=== PATIENT | female | born 1970 | race Caucasian/White ===

== ENCOUNTER → 2016-05-11 | Outpatient (CLI) | payer BC ==
--- NOTE | 2016-05-11 11:32 | MM ---
Reason for exam: additional evaluation requested from prior study. Last mammogram was performed 1 year and 7 months ago. History: Family history of breast cancer in maternal grandmother at age 50. Physical Findings: Nurse did not find any significant physical abnormalities on exam. MG 3D Diag Mammo W/Cad TESS Bilateral CC and MLO view(s) were taken. Prior study comparison: October 09, 2014, bilateral MG screening mammo w CAD. May 03, 2013, mammogram, performed at [facility]. Finding: There is a high density, indistinct irregular mass in the upper outer quadrant, anterior position of the right breast, 2 cm from the nipple. New finding since October 09, 2014 and May 03, 2013. These results were verbally communicated with the patient and result sheet given to the patient on 05/11/16. ASSESSMENT: Incomplete: need additional imaging evaluation, BI-RAD 0 RECOMMENDATION: Ultrasound of the right breast.
--- NOTE | 2016-05-11 11:34 | USB ---
Reason for exam: additional evaluation requested from abnormal screening. History: Family history of breast cancer in maternal grandmother at age 50. US Breast Limited RT Right breast ultrasound is negative. These results were verbally communicated with the patient and result sheet given to the patient on 05/11/16. ASSESSMENT: Negative, BI-RAD 1 RECOMMENDATION: Follow-up diagnostic mammogram of the right breast in 3 months. (3D)
== END | disposition home or self-care (01) ==
LOC: RADMAMWWP 09:41
PROVIDERS: ATTEND Family Medicine
DX: N64.4 Mastodynia (principal)
CPT/HCPCS: 76642; G0204; G0279

== ENCOUNTER → 2016-08-12 | Outpatient (CLI) | payer BC ==
--- NOTE | 2016-08-12 08:33 | MM ---
Reason for exam: follow-up at short interval from prior study. Last mammogram was performed 3 months ago. History: Family history of breast cancer in maternal grandmother at age 50. Physical Findings: Nurse did not find any significant physical abnormalities on exam. MG 3D Diag Mammo W/Cad RT CC and MLO view(s) were taken of the right breast. Prior study comparison: May 11, 2016, bilateral MG 3d diag mammo w/cad TESS. October 09, 2014, bilateral MG screening mammo w CAD. There are scattered fibroglandular densities. There is no discrete abnormality. No significant new findings when compared with previous films. These results were verbally communicated with the patient and result sheet given to the patient on 08/12/16. ASSESSMENT: Negative, BI-RAD 1 RECOMMENDATION: Routine screening mammogram of both breasts in 9 months. Back on schedule May 2017.
== END | disposition home or self-care (01) ==
LOC: RADMAMWWP 07:02
PROVIDERS: ATTEND Family Medicine
DX: N64.4 Mastodynia (principal)
CPT/HCPCS: G0206; G0279

== ENCOUNTER → 2017-03-28 | Outpatient (CLI) | payer BC ==
--- NOTE | 2017-03-28 14:13 | NM ---
EXAMINATION TYPE: NM bone scan whole body DATE OF EXAM: 03/28/2017 COMPARISON: NONE HISTORY: Pain Delayed whole-body scanning was performed following the injection of 27.4 mCi Tc 99m MDP. Images acq uired 5 hours post injection. Additionally, anterior posterior views of the pelvis, medial and latera l views of the knee, and medial and lateral views of the feet are obtained. FINDINGS: Abnormal uptake involving the knees and feet is typical of arthritic change. Abnormal uptake involvin g the shoulders suggestive of arthritic change. Faint abnormal uptake throughout the mid and lower thoracic spine and near the lumbosacral junction l ikely degenerative. IMPRESSION: 1. Abnormal uptake involving the knees, feet and shoulders likely post arthritic. 2. Correlate for mild degenerative disc disease in the thoracic spine.
[2017-03-28 17:29] LABS: Anti-DNA, DS unit <1.0 IU/mL; DNA Double-Stranded NEGATIVE (NEGATIVE)
[2017-03-31 09:35] LABS: Lyme IgG/IgM 0.1 Index
== END | disposition home or self-care (01) ==
LOC: RADNMMAIN 07:20
PROVIDERS: ATTEND Internal Medicine Rheumatology
DX: R93.7 Abnormal findings on diagnostic imaging of other parts of musculoskeletal system (principal); M19.90 Unspecified osteoarthritis, unspecified site; A69.20 Lyme disease, unspecified
CPT/HCPCS: 83516; 86618; 86225; 78306; 36415; A9503

== ENCOUNTER 2017-04-22 13:52 | Emergency (ER) | payer BC ==
[2017-04-22] MEDS ORDERED: KETOROLAC 60 MG/2 ML VIAL IM STA (14:57)
--- NOTE | 2017-04-22 15:00 | ED ---
Extremity Problem HPI - General Chief complaint: Extremity Problem,Nontraumatic Stated complaint: Leg pain Time Seen by Provider: 04/22/17 14:44 Source: patient Mode of arrival: ambulatory Limitations: no limitations - History of Present Illness Initial comments: This is a 47 year old female who presents with a chief complaint of left calf and popliteal pain which began 1 day ago. The patient states she noticed an increase in left lower extremity swelling today. She states she has been favoring the left leg due to her arthritis has been flaring in her right knee for the last 3 weeks. She denies shortness of breath and she is able to ambulate. She has a significant history of hemochromatosis which has been adequately controlled. - Related Data Home Medications Medication Instructions Recorded Confirmed Cholecalciferol [Vitamin D3] 5,000 unit PO DAILY 06/04/15 02/06/17 Omeprazole [PriLOSEC] 20 mg PO BID 06/04/15 02/06/17 Sertraline [Zoloft] 100 mg PO DAILY 06/04/15 02/06/17 Topiramate [Topiramate ER] 100 mg PO DAILY 06/04/15 02/06/17 Cyanocobalamin (Vitamin B-12) 1,000 mcg PO DAILY 02/06/17 02/06/17 [Vitamin B-12] Dextroamphetamine/Amphetamine 20 mg PO DAILY 02/06/17 02/06/17 [Adderall Xr] Doxycycline Hyclate [Vibramycin] 100 mg PO BID 02/06/17 02/06/17 [place]-3 Fatty Acids/Fish Oil [Fish 1 cap PO DAILY 02/06/17 02/06/17 Oil 1,000 mg Softgel] Thyroid,Pork [Nature-Throid] 65 mg PO DAILY 02/06/17 02/06/17 traMADol HCL [Ultram] 50 mg PO Q6HR PRN 02/06/17 02/06/17 Previous Rx's Medication Instructions Recorded Aspirin EC [Ecotrin Low Dose] 81 mg PO DAILY #30 tablet. 02/07/17 Nitroglycerin Sl Tabs [Nitrostat] 0.4 mg SUBLINGUAL Q5M PRN #20 tab 02/07/17 Allergies Allergy/AdvReac Type Severity Reaction Status Date / Time codeine Allergy Unknown Nausea & Verified 04/22/17 14:42 Vomiting Penicillins Allergy Unknown Rash/Hives Verified 04/22/17 14:42 metal Allergy Unknown Unknown Uncoded 04/22/17 14:42 Review of Systems ROS Statement: Those systems with pertinent positive or pertinent negative responses have been documented in the HPI. ROS Other: All systems not noted in ROS Statement are negative. Past Medical History Past Medical History: Blood Disorder, GERD/Reflux, Skin Disorder, Sleep Apnea/ CPAP/BIPAP Additional Past Medical History / Comment(s): USES C-PAP MACHINE, HEMOCHROMATOSIS, PSORIASIS, BLOOD IN STOOL . TAKES TOPAMAX TO HELP PREVENT HEADACHES. History of Any Multi-Drug Resistant Organisms: None Reported Past Surgical History: Adenoidectomy, Bariatric Surgery, Cholecystectomy, Tonsillectomy, Tubal Ligation Additional Past Surgical History / Comment(s): LAP BAND INSERTED AND REMOVED, GASTRIC SLEEVE (2012), BRAIN SURGERY (MAY 2014) WITH PLATE INSERTED TO SUPPORT BRAIN AND REPAIR OF SPINAL FLUID LEAK. Past Anesthesia/Blood Transfusion Reactions: Family History of Problems w/ Anesthesia, Motion Sickness, Postoperative Nausea & Vomiting (PONV) Additional Past Anesthesia/Blood Transfusion Reaction / Comment(s): FATHER HAS DIFFICULTY WAKING UP. PT STATES SHE IS SENSITIVE TO NARCOTICS AND GETS HEADACHE AND NAUSEA. Past Psychological History: ADD/ADHD, Anxiety, Depression Smoking Status: Former smoker Past Alcohol Use History: Rare Past Drug Use History: None Reported - Past Family History Mother Family Medical History: Diabetes Mellitus Father Family Medical History: Dementia Additional Family Medical History / Comment(s): Glucoma, Brain tumor - benin General Exam Limitations: no limitations General appearance: alert, in no apparent distress Head exam: Present: atraumatic, normocephalic, normal inspection Extremities exam: Present: normal inspection, full ROM, tenderness (positive Torey sign in left calf. Neurovascular grossly intact bilaterally. ), normal capillary refill, calf tenderness (left calf tender), other (pitting edema noted bilaterally with the left lower extremity more extensive.). Absent: joint swelling Neurological exam: Present: alert, oriented X3, CN II-XII intact Psychiatric exam: Present: normal affect, normal mood Skin exam: Present: warm, dry, intact, normal color. Absent: rash Course Vital Signs 04/22/17 14:39 Temperature 98.2 F Pulse Rate 89 Respiratory 18 Rate Blood Pressure 127/74 O2 Sat by Pulse 99 Oximetry Medical Decision Making - Medical Decision Making 47-year-old female presented emergency from for left leg pain. Patient also which is negative for DVT. Patient has equal pulses in all lower extremities no arterial disease noted. Patient most likely is muscular skeletal pain secondary to recent change in gait because her right knee pain. She has appointment with her special technical operations officer and will return if symptoms worsen. Disposition Clinical Impression: Musculoskeletal pain of left lower extremity Disposition: HOME SELF-CARE Condition: Stable Instructions: Leg Pain (ED) Additional Instructions: Please return to the Emergency Department if symptoms worsen or any other concerns. Referrals: Jin Murillo MD [Primary Care Provider] - 1-2 days Time of Disposition: 16:39
--- NOTE | 2017-04-22 16:29 | US ---
EXAMINATION TYPE: US venous doppler duplex LE LT DATE OF EXAM: 04/22/2017 2:53 PM COMPARISON: NONE CLINICAL HISTORY: 47-year-old female Pain. Left calf pain SIDE PERFORMED: Left TECHNIQUE: The lower extremity deep venous system is examined utilizing real time linear array sonog ely with graded compression, doppler sonography and color-flow sonography. FINDINGS: VESSELS IMAGED: External Iliac Vein (EIV) Common Femoral Vein Deep Femoral Vein Greater Saphenous Vein * Femoral Vein Popliteal Vein Small Saphenous Vein * Proximal Calf Veins (* superficial vessels) Left Leg: Negative for DVT Additional targeted scanning in the calf area of patient's pain. No specific sonographic abnormality is seen. IMPRESSION: 1. No evidence for DVT within the left lower extremity imaged from the groin to the upper calf. 2. Targeted scanning at the site of patient's pain along the calf region shows no discrete sonographi c abnormality at this time.
[2017-04-22 16:49] VITALS: BP 125/75; PULSE 76; RESP 16; TEMP 97.6
== END 2017-04-22 16:51 | disposition home or self-care (01) ==
LOC: EC 13:52
DX: M79.662 Pain in left lower leg (principal); R60.0 Localized edema; M25.561 Pain in right knee; M79.89 Other specified soft tissue disorders; K21.9 Gastro-esophageal reflux disease without esophagitis; G47.30 Sleep apnea, unspecified; F32.9 Major depressive disorder, single episode, unspecified; F41.9 Anxiety disorder, unspecified; F90.9 Attention-deficit hyperactivity disorder, unspecified type; Z87.891 Personal history of nicotine dependence; Z79.899 Other long term (current) drug therapy; Z88.0 Allergy status to penicillin; Z88.5 Allergy status to narcotic agent; Z91.09 Other allergy status, other than to drugs and biological substances; Z86.69 Personal history of other diseases of the nervous system and sense organs; Z99.89 Dependence on other enabling machines and devices
CPT/HCPCS: 93971; 99283; 96372; J1885

== ENCOUNTER → 2017-05-09 | Outpatient (CLI) | payer BC ==
[~2017-05-09] MED LIST: DOBUTamine 250 MG in DEXTROSE 5% IN WATER 250 ML IV ONE
--- NOTE | 2017-05-10 10:07 | ECHOS ---
- Stress Test Note Stress Test Results/Findings: Exam Performed: dobutamine stress echo Exam Date: 05/09/17 Reason for Exam: ABNORMAL EKG Height: 5 ft 2 in Weight: 90.718 kg Protocol: DSE Stage: 3 Duration of Exercise: 8:45 Resting Heart Rate: 66 Resting Blood Pressure: 114/71 Maximum Achieved Heart Rate: 150 Maximum Achieved Blood Pressure: 148/48 85% PMHR: 149 100% PMHR: 175 METS: NA Technologist Comment: Stress Test Results/Findings: This is a 47-year-old female being evaluated for symptoms of exertional shortness of breath and also findings of abnormal EKG. Patient has history of smoking. Baseline EKG showed sinus rhythm with normal ND interval and QRS duration with poor R-wave progression in the anterior leads. Blood pressure at rest is 114/71 with a pulse rate of 66. Patient walked on the Joaquim protocol for 8 minutes and 45 seconds achieving a maximal heart rate of 150 with a blood pressure 148/48. A standard dose of dobutamine was were initiated at 10 mics and was titrated to maximum 30 mics. A peak heart rate of 150 with blood pressure 148/48 was achieved. EKGs taken during and after the infusion did not reveal any changes to suggest ischemia. Occasional PVCs were noted. ECHO DATA: Echo images showed normal wall motion and thickening at rest. There is progressive augmentation of wall motion and thickening with low dose and high dose dobutamine. Patient did not express any chest pain. Occasional PVCs were noted. FINAL IMPRESSION: #1. Negative dobutamine stress test #2. Negative dobutamine stress echo. #3. Patient did not experience any chest pain. #4. Occasional PVCs were noted during exercise. MTDD
== END | disposition home or self-care (01) ==
LOC: RADNMMAIN 10:17
PROVIDERS: ATTEND Family Medicine
DX: I49.3 Ventricular premature depolarization (principal)
CPT/HCPCS: 93017; 93350; J1250

== ENCOUNTER → 2017-05-12 | Outpatient (CLI) | payer BC ==
--- NOTE | 2017-05-12 08:35 | MR ---
EXAMINATION TYPE: MR lumbar spine wo con DATE OF EXAM: 05/12/2017 COMPARISON: Nuclear medicine whole body bone scan March 28, 2017. HISTORY: Spinal stenosis / Herniated disc per order. Back pain for 6 months going into bilateral legs left worse than right. Abnormal bone scan. TECHNIQUE: Multiplanar, multisequence imaging of the lumbar spine is performed without IV contrast. FINDINGS: Survey images show slight levoconvex scoliotic curvature in the mid lumbar spine. Spine is noted fairly straightened on the bone scan. Sagittal images of the lumbar spine show vertebral body h eights to appear satisfactory. There is disc desiccation L4-L5 and L5-S1 levels. There is mild disc s pace narrowing at these levels. Posterior disc herniation is present at L5-S1 level on sagittal image s. Increased signal posteriorly consistent with annular tear is present. The conus medullaris is norm al in position and signal ending mid L1 level. The bone marrow signal intensity is within normal rocha its. No significant spurring is seen. Axial images are suboptimal as there is motion artifact degradation present. Axial images show the T1 2-L1, L1-L2, and L2-L3 levels to appear within normal limits. Axial images at the L3-L4 level show artifact from motion degradation. There is left foraminal disc p rotrusion causing mild left-sided neural foraminal narrowing. Right-sided neural foramen is patent. S tomi canal is preserved. Axial images at the L4-L5 level show mild facet degenerative changes and ligamentum flavum hypertroph y and mild broad based posterior disc protrusion. There is mild effacement the anterior and posterior lateral thecal sac. There is mild bilateral anterior inferior neural foraminal narrowing seen. Axial images at the L5-S1 level shows central disc protrusion and mild facet arthropathy bilaterally. There is mild effacement of the anterior thecal sac. There is mild left greater than right bilateral neural foraminal narrowing seen. No suspicious retroperitoneal findings are identified. IMPRESSION: Some multilevel degenerative changes in the mid to lower lumbar spine as detailed above. Mild spinal canal effacement lower lumbar levels. No significant spinal canal stenosis seen. No suspi cious findings lower thoracic spine and thoracolumbar junction. Bone scan to me is fairly unimpressiv e at this level.
== END | disposition home or self-care (01) ==
LOC: RADMRIMAIN 07:35
PROVIDERS: ATTEND Internal Medicine Rheumatology
DX: M47.816 Spondylosis without myelopathy or radiculopathy, lumbar region (principal)
CPT/HCPCS: 72148

== ENCOUNTER → 2017-05-18 | Outpatient (CLI) | payer BC ==
--- NOTE | 2017-05-18 13:05 | US ---
EXAMINATION TYPE: US venous doppler duplex LE LT DATE OF EXAM: 05/18/2017 12:27 PM COMPARISON: NONE CLINICAL HISTORY: R79.1 Abnormal Coagulation Profile. Pain and edema left leg SIDE PERFORMED: left TECHNIQUE: The lower extremity deep venous system is examined utilizing real time linear array sonog ely with graded compression, doppler sonography and color-flow sonography. VESSELS IMAGED: External Iliac Vein (EIV) Common Femoral Vein Deep Femoral Vein Greater Saphenous Vein * Femoral Vein Popliteal Vein Small Saphenous Vein * Proximal Calf Veins (* superficial vessels) Left Leg: No evidence of DVT IMPRESSION: 1. No deep venous thrombosis left lower extremity.
== END | disposition home or self-care (01) ==
LOC: RADUSWWP 11:57
PROVIDERS: ATTEND Family Medicine
DX: R79.1 Abnormal coagulation profile (principal)

== ENCOUNTER → 2017-09-04 | Outpatient (CLI) | payer BC ==
--- NOTE | 2017-09-04 11:45 | MM ---
Reason for exam: screening (asymptomatic). Last mammogram was performed 1 year and 1 month ago. History: Family history of breast cancer in maternal grandmother at age 50 and breast cancer in sister at age 61. Physical Findings: A clinical breast exam by your physician is recommended on an annual basis and results should be correlated with mammographic findings. MG 3D Screening Mammo W/Cad Bilateral CC and MLO view(s) were taken. Prior study comparison: August 12, 2016, right breast MG 3d diag mammo w/cad RT. May 11, 2016, bilateral MG 3d diag mammo w/cad TESS. There are scattered fibroglandular densities. No significant changes when compared with prior studies. ASSESSMENT: Negative, BI-RAD 1 RECOMMENDATION: Routine screening mammogram of both breasts in 1 year.
== END | disposition home or self-care (01) ==
LOC: RADMAMWWP 07:07
PROVIDERS: ATTEND Obstetrics & Gynecology
DX: Z12.31 Encounter for screening mammogram for malignant neoplasm of breast (principal)
CPT/HCPCS: 77063; 77067

== ENCOUNTER → 2018-04-30 | Outpatient (CLI) | payer BC ==
--- NOTE | 2018-04-30 16:38 | US ---
EXAMINATION TYPE: US extremity nonvasc mass LT DATE OF EXAM: 04/30/2018 COMPARISON: US venous 05/18/17 CLINICAL HISTORY: Bakers Cyst M71.22. No masses or cysts seen in left popliteal space. Images of right side for comparison. IMPRESSION: 1. Negative popliteal fossa ultrasound. No cysts or masses are evident. 2. Consider MRI if additional evaluation would be of benefit.
== END ==
LOC: RADUSWWP 07:06
PROVIDERS: ATTEND Internal Medicine Rheumatology
DX: M71.22 Synovial cyst of popliteal space [Baker], left knee (principal)

== ENCOUNTER → 2018-06-06 | Outpatient (CLI) | payer BC ==
--- NOTE | 2018-06-06 22:47 | MR ---
EXAMINATION TYPE: MR brain and iac wo/w con DATE OF EXAM: 06/06/2018 COMPARISON: Prior MRI brain and IAC May 19, 2014. HISTORY: Left Encephalocele, headache, ear ache TECHNIQUE: Multiplanar, multisequence images of the brain and brainstem including internal auditory canals are a ll performed performed without and with IV contrast, utilizing 9 mL intravenous Gadavist . FINDINGS: Diffusion weighted images demonstrate no evidence of a recent infarct or other diffusion ab normality. There is no extra-axial fluid collection or significant white matter signal abnormality. The ventricular system and cisternal spaces are normal in size and appearance. The brain volume is age appropriate. Midline structures demonstrate normal morphology. The craniocervical junction appears within normal limits. Post contrast images demonstrate no abnormal enhancement. The dural venous sinuses appear pa tent. The visualized sinuses are clear and the globes are intact. Nasal septum remains slightly devia jeffry to left of midline. Some patchy increased fluid signal is redemonstrated in the deep left mastoid air cells. Vestibular c ochlear complexes are symmetric and felt within normal limits. There is no suspicious enhancing cereb ellopontine angle mass identified bilaterally. IMPRESSION: System persistent mild increased fluid signal left petrous apex could reflect new infecti on or inflammation. No new suspicious enhancing masses are present.
== END | disposition home or self-care (01) ==
LOC: RADMRIMAIN 15:31
PROVIDERS: ATTEND Otolaryngology Otology & Neurotology
DX: Z09 Encounter for follow-up examination after completed treatment for conditions other than malignant neoplasm (principal); Z87.798 Personal history of other (corrected) congenital malformations
CPT/HCPCS: 70553; A9585

== ENCOUNTER → 2019-01-04 | Outpatient (CLI) | payer BC ==
--- NOTE | 2019-01-07 08:55 | MM ---
Reason for exam: screening (asymptomatic). Last mammogram was performed 1 year and 4 months ago. History: Family history of breast cancer in maternal grandmother at age 50 and breast cancer in sister at age 61. Physical Findings: A clinical breast exam by your physician is recommended on an annual basis and results should be correlated with mammographic findings. MG Screening Mammo w CAD Bilateral CC and MLO view(s) were taken. Prior study comparison: September 04, 2017, bilateral MG 3d screening mammo w/cad. August 12, 2016, right breast MG 3d diag mammo w/cad RT. There are scattered fibroglandular densities. No suspicious abnormality. No significant changes when compared with prior studies. ASSESSMENT: Negative, BI-RAD 1 RECOMMENDATION: Routine screening mammogram of both breasts in 1 year.
== END | disposition home or self-care (01) ==
LOC: RADMAMWWP 07:39
PROVIDERS: ATTEND Family Medicine
DX: Z12.31 Encounter for screening mammogram for malignant neoplasm of breast (principal)
CPT/HCPCS: 77067

== ENCOUNTER → 2019-08-23 | Outpatient (CLI) | payer MEDICARE ==
--- NOTE | 2019-08-23 14:30 | US ---
EXAMINATION TYPE: US kidneys/renal and bladder DATE OF EXAM: 08/23/2019 COMPARISON: NONE CLINICAL HISTORY: R31.9 Hematuria. Hematuria EXAM MEASUREMENTS: Right Kidney: 10.0 x 5.3 x 4.5 cm Left Kidney: 11.0 x 4.6 x 4.6 cm Right Kidney: No hydronephrosis or masses seen Left Kidney: No hydronephrosis or masses seen Bladder: distended, anechoic Bilateral Jets not seen IMPRESSION: 1. Normal renal ultrasound
== END | disposition home or self-care (01) ==
LOC: RADUSWWP 13:37
PROVIDERS: ATTEND Family Medicine
DX: R31.9 Hematuria, unspecified (principal)
CPT/HCPCS: 76770

== ENCOUNTER → 2019-09-26 | Outpatient (CLI) | payer MEDICARE ==
--- NOTE | 2019-09-27 15:15 | US ---
EXAMINATION TYPE: US pelvis complete transvaginal DATE OF EXAM: 09/26/2019 COMPARISON: US 04/20/2015 CLINICAL HISTORY: R10.2 Pelvic and perineal pain. Patient had an ablation 1-2 years ago TECHNIQUE: . Transabdominal sonographic images of the pelvis were acquired. Transvaginal sonographi c images were medically necessary to better assess the following anatomy: Ovaries Date of LMP: 1-2 years ago EXAM MEASUREMENTS: Uterus: 6.8 x 3.6 x 3.5 cm Endometrial Stripe: 0.2 cm Right Ovary: 2.4 x 1.3 x 1.2 cm Left Ovary: 3.8 x 3.1 x 2.3 cm 1. Uterus: Anteverted Heterogenous myometrium. Discrete hypoechoic heterogenous area of the logistics solution manager ior uterine body, visualized measuring 1.6 x 1.3 x 1.5 cm. Nabothian cysts of the cervix visualized. 2. Endometrium: Normal. 3. Right Ovary: Normal. 4. Left Ovary: Cyst visualized measuring 2.6 x 2.1 x 2.8 cm 5. Bilateral Adnexa: Normal. 6. Posterior cul-de-sac: Normal. IMPRESSION: 1. 1.5 cm hypoechoic area of the posterior uterine body likely uterine fibroid. 2. 2.8 cm simple benign cyst of the left ovary. No follow-up for this cyst is recommended.
== END | disposition home or self-care (01) ==
LOC: RADUSWWP 15:32
PROVIDERS: ATTEND Family Medicine
DX: N83.202 Unspecified ovarian cyst, left side (principal); N85.8 Other specified noninflammatory disorders of uterus
CPT/HCPCS: 76830; 76856

== ENCOUNTER → 2019-10-10 | Day surgery (SDC) | payer MEDICARE ==
[~2019-10-10] MED LIST changes: -DOBUTamine 250 MG in DEXTROSE 5% IN WATER 250 ML IV ONE; +IV FLUID CONTINUATION 1,000 ML IV ONE; +LACTATED RINGERS 1,000 ML IV ONE; +LIDOCAINE 1% (10MG/ML) FOR IV START INTRADERMA ONE; +LIDOCAINE 1% INJ 10MG/ML (20 ML MDV) ONE; +PROPOFOL 10 MG/ML 20 ML VIAL IV ONE
[2019-10-10 11:14] VITALS: RESP 20; TEMP 97.6
--- NOTE | 2019-10-10 12:12 | P.PCN ---
Date of Procedure: 10/10/19 Procedure(s) Performed: BRIEF HISTORY: Patient is a body 49-year-old pleasant white female scheduled for an elective colonoscopy as a part of evaluation of Iron deficiency anemia. PROCEDURE PERFORMED: Colonoscopy. PREOPERATIVE DIAGNOSIS: Iron deficiency anemia. IV sedation per Anesthesia. PROCEDURE: After informed consent was obtained, the patient, was brought into the endoscopy unit. IV sedation was administered by Anesthesia under continuous monitoring. Digital rectal examination was normal. Initially the Olympus CF-160 flexible video colonoscope was then inserted in the rectum, gradually advanced into the cecum without any difficulty. Careful examination was performed as the scope was gradually being withdrawn. Ileocecal valve and the appendiceal orifice were visualized and appeared normal. Prep was excellent. Mucosa of the cecum, ascending colon, transverse colon, descending colon, sigmoid colon, and rectum appeared normal. Retroflexion was performed in the rectum and no lesions were seen. The patient tolerated the procedure well. IMPRESSION: Normal-appearing colon from rectum to cecum with no evidence of colorectal neoplasia. RECOMMENDATIONS: Findings of this examination were discussed with the patient as well as a family. She was advised to have a repeat screening colonoscopy in 10 years..
[2019-10-10 12:33] VITALS: BP 139/84; PULSE 82
== END ==
LOC: ORWHC2ENDO 10:41
PROVIDERS: ATTEND Internal Medicine Gastroenterology
DX: D50.9 Iron deficiency anemia, unspecified (principal); G47.33 Obstructive sleep apnea (adult) (pediatric); Z99.89 Dependence on other enabling machines and devices; E66.9 Obesity, unspecified; Z68.41 Body mass index [BMI] 40.0-44.9, adult; G43.909 Migraine, unspecified, not intractable, without status migrainosus; K21.9 Gastro-esophageal reflux disease without esophagitis; Z98.84 Bariatric surgery status; E83.119 Hemochromatosis, unspecified; Z79.891 Long term (current) use of opiate analgesic; Z79.899 Other long term (current) drug therapy; Z88.0 Allergy status to penicillin; Z88.2 Allergy status to sulfonamides; Z88.5 Allergy status to narcotic agent
CPT/HCPCS: 81025; 45378; J2001; J2704

== ENCOUNTER → 2020-03-10 | Outpatient (CLI) | payer MEDICARE ==
--- NOTE | 2020-03-10 09:00 | MR ---
EXAMINATION TYPE: MR knee RT wo con DATE OF EXAM: 03/10/2020 COMPARISON: Outside right knee x-ray January 28, 2020 HISTORY: R knee pain TECHNIQUE: Multiplanar, multisequence imaging of the right knee is performed without IV contrast. FINDINGS: MEDIAL MENISCUS: Anterior and posterior horns are intact without tear. LATERAL MENISCUS: Anterior and posterior horns are intact without tear. CRUCIATE LIGAMENTS: The anterior and posterior cruciate ligaments are intact and unremarkable. COLLATERAL LIGAMENTS: The medial collateral ligament and lateral collateral ligament complex are inta ct and unremarkable. EXTENSOR MECHANISM: Visualized quadriceps and patellar tendons are intact. EFFUSION: Small to moderate size suprapatellar joint effusion. POPLITEAL CYST: No popliteal/sanchez cyst. TRICOMPARTMENT SPACES: [id number] tricompartment joint space loss with mild/moderate tricompart ment joint space spurring. CARTILAGE: Chondromalacia patella with thinning of articular cartilage along the posterior patellar p ole, findings greatest inferiorly where there are full thickness sites of cartilaginous loss identifi ed. BONE MARROW SIGNAL: There is a heterogeneous diminished T1 and increased T2 signal along the posterio r patellar pole are present. There is additional similar area involving the anterior lateral aspect o f the distal medial femoral condyle articular surface. Overall heterogeneity consistent with red kristin ow reconversion. OTHER: No additional significant abnormality is appreciated. IMPRESSION: 1. Fairly moderate tricompartment degenerative changes greatest patellofemoral compartment as detaile d above somewhat pronounced for patient's age. 2. No meniscal or ligamentous tear is seen. 3. Small to moderate-sized suprapatellar joint effusion.
== END | disposition home or self-care (01) ==
LOC: RADMRIMAIN 07:54
PROVIDERS: ATTEND Orthopaedic Surgery
DX: M17.11 Unilateral primary osteoarthritis, right knee (principal)

== ENCOUNTER → 2020-04-03 | Outpatient (CLI) | payer MEDICARE ==
[2020-04-03 13:23] LABS: Basophils % (A) 1 %; Eosinophils # (A) 0.2 k/uL (0-0.7); Eosinophils % (A) 2 %; HCT 44.2 % (34.0-46.0); HGB 14.9 gm/dL (11.4-16.0); Lymphocytes # (A) 2.5 k/uL (1.0-4.8); Lymphocytes % (A) 30 %; MCH 30.5 pg (25.0-35.0); MCHC 33.7 g/dL (31.0-37.0); MCV 90.3 fL (80.0-100.0); Mean Platelet Volume 6.7; Monocytes # (A) 0.5 k/uL (0-1.0); Monocytes % (A) 6 %; Neutrophils # (A) 4.8 k/uL (1.3-7.7); Neutrophils % (A) 60 %; Platelet Count 283 k/uL (150-450); RBC 4.89 m/uL (3.80-5.40); RDW 13.1 % (11.5-15.5); WBC 8.1 k/uL (3.8-10.6)
[2020-04-03 13:49] LABS: Potassium 4.3 mmol/L (3.5-5.1)
== END | disposition home or self-care (01) ==
LOC: LABPAT 10:54
PROVIDERS: ATTEND Orthopaedic Surgery
DX: M23.91 Unspecified internal derangement of right knee (principal)
CPT/HCPCS: 80051; 85025

== ENCOUNTER 2020-04-09 10:44 | Day surgery (SDC) | payer MEDICARE ==
[2020-04-07 10:19] VITALS: BMI 41.5
--- NOTE | 2020-04-08 20:32 | HP ---
HISTORY AND PHYSICAL DATE OF SURGERY: 04/09/2020 Antonio Lester is a 50-year-old patient seen with progressive right knee pain. We discussed options for treatment. She elected to proceed with arthroscopy. Consent was obtained. PAST MEDICAL HISTORY: Gastroesophageal reflux disease. PAST SURGICAL HISTORY: Tubal ligation, carpal tunnel release. DAILY MEDICATIONS: Omeprazole, Flexeril. ALLERGIES: BACTRIM, CODEINE, PENICILLIN. SOCIAL HISTORY: She denies tobacco use. PHYSICAL EVALUATION OF THE RIGHT KNEE: Range of motion zero to 130. Tenderness along the medial joint line. Tenderness along the lateral joint line. Positive medial Erin's. Positive lateral Erin's. Ligaments stable. Hip rotation without pain. Distal neurovascular exam is intact. RADIOGRAPHS: Right knee radiographs revealed mild osteoarthritic changes. MRI right knee revealed chondromalacia and intra-articular effusion. IMPRESSION: 1. Internal derangement of the right knee with osteochondral tear. 2. Gastroesophageal reflux disease. PLAN: Right knee arthroscopy with partial meniscectomy, partial synovectomy and debridement. MMODL / IJN: [id number] /
[~2020-04-09 10:44] MED LIST changes: +DEXAMETHASONE SOD PHOSPHATE 4 MG/ML 1 ML VIAL IV ONE; -IV FLUID CONTINUATION 1,000 ML IV ONE; -LACTATED RINGERS 1,000 ML IV ONE; +LACTATED RINGERS 1,000 ML IV SCH; -LIDOCAINE 1% (10MG/ML) FOR IV START INTRADERMA ONE; +LIDOCAINE 1% (10MG/ML) FOR IV START INTRADERMA PRN; -LIDOCAINE 1% INJ 10MG/ML (20 ML MDV) ONE; +MIDAZOLAM 2 MG/2 ML VIAL IV PRN; +ONDANSETRON 4 MG/2 ML VIAL IVP ONE; -PROPOFOL 10 MG/ML 20 ML VIAL IV ONE
[2020-04-09 11:20] VITALS: RESP 16
[2020-04-09] MEDS ORDERED: LACTATED RINGERS 1,000 ML IV ONE (11:26)
[2020-04-09] MEDS ORDERED: SCOPOLAMINE 1.5MG/72HR PATCH TRANSDERM ONE (11:27)
[2020-04-09] MEDS ORDERED: fentaNYL (PF) 50 MCG/ML 2 ML AMP IV ONE (12:05)
[2020-04-09] MEDS ORDERED: PROPOFOL 10 MG/ML 20 ML VIAL IV ONE (12:15)
[2020-04-09] MEDS ORDERED: KETOROLAC 15 MG/ML 1 ML VIAL ONE (12:15)
[2020-04-09] MEDS ORDERED: LIDOCAINE 1% INJ 10MG/ML (20 ML MDV) ONE (12:15)
[2020-04-09] MEDS ORDERED: MIDAZOLAM 2 MG/2 ML VIAL ONE (12:15)
[2020-04-09] MEDS ORDERED: fentaNYL (PF) 50 MCG/ML 2 ML AMP ONE (12:15)
[2020-04-09] MEDS ORDERED: SUCCINYLCHOLINE CHLORIDE 100 MG/5 ML SYR IV ONE (12:15)
[2020-04-09] MEDS ORDERED: BUPIVACAINE (PF) 0.25% 30 ML VIAL INTRAARTIC ONE (12:26)
--- NOTE | 2020-04-09 13:19 | P.OP ---
Date of Procedure: 04/09/20 Preoperative Diagnosis: Internal derangement right knee Postoperative Diagnosis: 1. Tear medial meniscus right knee 2. Grade 2 chondromalacia patella right knee 3. Loose body right knee 4. Reactive synovitis medial, lateral and suprapatellar compartments right knee Procedure(s) Performed: 1. Arthroscopic partial medial meniscectomy right knee 2. Arthroscopic chondroplasty patella right 3. Arthroscopic removal loose body right knee 4. Arthroscopic partial synovectomy medial, lateral and suprapatellar compartments right knee Anesthesia: DAXA, local Surgeon: Mustapha Villa Estimated Blood Loss (ml): 7 Pathology: none sent Condition: stable Disposition: PACU Indications for Procedure: 50-year-old patient seen with progressive right knee pain. After treatment options were discussed with her, she elected to proceed with arthroscopy. Operative Findings: See description of procedure Description of Procedure: Patient was taken to the operative suite. Patient underwent a general anesthetic by the department of anesthesia. Patient was given preoperative antibiotics. The right lower extremity was placed in a well-padded arthroscopic leg umaña. The right leg was prepped and draped in the normal sterile o rthopedic fashion. A lateral parapatellar and suprapatellar incision was made. Trochars were inserted. Arthroscopy was initiated. Suprapatellar pouch revealed diffuse thick reactive synovitis. The patellofemoral joint appeared to articulate congruently. There as grade 2 chondromalacia of the patella with some osteochondral flap tears present. The scope was guided into the medial gutter. No loose bodies or plica were identified. The scope was then guided into the medial compartment. A medial parapatellar incision was made. Trocar inserted followed by probe. There was a loose body on the medial side of the medial compartment. I now introduced a loose body forceps and retrieved that without difficulty. There was a tear involving the posterior horn medial meniscus. There were some early grade 1 chondromalacia changes of the medial compartment. There was thick reactive synovitis anteriorly. I performed a partial medial meniscectomy getting down to stable meniscal tissue. I performed a partial synovectomy decompressing the thick reactive synovitis. The shaver was removed. The residual meniscus was stable. There was good decompression of the synovitis. Scope and probe were then guided into the intercondylar notch. Cruciates were identified, probed and found to be stable. The scope and probe were then guided into lateral compartment. Lateral meniscus was probed and found to be stable. There was no specific chondromalacia present. There was some reactive synovitis anteriorly. I introduced a motorized shaver and performed a partial synovectomy decompressing the thick reactive synovitis. The shaver was removed. There was good decompression of the synovitis. The scope was in guided back into the suprapatellar compartment. I introduced a motorized shaver into the suprapatellar compartment. I debrided some piecemeal fragments of meniscus I encountered. I performed a chondroplasty of the patella getting down to stable osteochondral tissue. I performed a partial synovectomy decompressing the thick reactive synovitis. The shaver was removed. I now took one more look on the entire knee, no residual debris. Instruments were now removed from the joint. The joint was infiltrated with .25% Marcaine. Steri- Strips were applied to the portal sites. Sterile dressings were applied. The patient was placed into a PERFECTO hose. No tourniquet was utilized. The patient was awakened, transferred to a bed and taken to recovery stable satisfactory condition.
[2020-04-09] MEDS: HYDROmorphone 0.5 MG/0.5 ML SYRINGE IVP PRN ×2 (13:20→13:35)
[2020-04-09 13:51] VITALS: TEMP 96.8
[2020-04-09] MEDS ORDERED: HYDROcodone/APAP 5-325MG 1 EACH TAB ONE (14:26)
[2020-04-09] MEDS ORDERED: HYDROcodone/APAP 5-325MG 1 EACH TAB PO ONE (14:31)
[2020-04-09 14:37] VITALS: BP 137/84; PULSE 69
== END 2020-04-09 15:15 | disposition home or self-care (01) ==
LOC: OR 10:44
PROVIDERS: ATTEND Orthopaedic Surgery
DX: M23.221 Derangement of posterior horn of medial meniscus due to old tear or injury, right knee (principal); M22.41 Chondromalacia patellae, right knee; M23.41 Loose body in knee, right knee; M65.861 Other synovitis and tenosynovitis, right lower leg; S83.8X1A Sprain of other specified parts of right knee, initial encounter; M94.261 Chondromalacia, right knee; M17.11 Unilateral primary osteoarthritis, right knee; K21.9 Gastro-esophageal reflux disease without esophagitis; Z88.2 Allergy status to sulfonamides; Z88.5 Allergy status to narcotic agent; Z88.0 Allergy status to penicillin; Z98.51 Tubal ligation status; Z98.890 Other specified postprocedural states; Z79.899 Other long term (current) drug therapy; X58.XXXA Exposure to other specified factors, initial encounter
CPT/HCPCS: 81025; 29881; J2250; J1100; J0690; J2405; J2001; J3010; J1885; J0330; J2704; J1170

== ENCOUNTER 2020-05-06 11:58 | Emergency (ER) | payer MEDICARE ==
[2020-05-06 12:14] VITALS: PULSE 69; TEMP 98.3
[2020-05-06] MEDS ORDERED: SODIUM CHLORIDE 0.9% 1,000 ML IV ONE (12:35)
[2020-05-06] MEDS ORDERED: diphenhydrAMINE 50 MG/ML 1 ML VIAL IVP STA (12:36)
--- NOTE | 2020-05-06 12:41 | ED ---
General Adult HPI - General Chief complaint: Headache Stated complaint: Headache Time Seen by Provider: 05/06/20 12:10 Source: patient, family, RN notes reviewed, old records reviewed Mode of arrival: ambulatory Limitations: no limitations - History of Present Illness Initial comments: This a 50-year-old female presents emergency Department with a ten-day history of headache. Patient states she has a history of migraines and this is similar except that it's a little worse and is lasting longer. Patient states she's had brain surgery in the past for some sort of spinal leak. Patient comes in today stating that he started 10 days ago about 2 weeks after her Cymbalta was increased from 20 mg to 40 mg a day. Patient states she decreased that began after a week to 20 and then it stopped altogether on Monday because the headache was not going away. Patient denies any blurred vision. Patient states she does feel lightheaded. Patient denies any difficulty breathing shortness of breath chest pain. Patient denies any numbness or weakness. Patient states she's nauseated but hasn't vomited.. Patient states she's been able to eat normally. Patient denies any abdominal pain. - Related Data Home Medications Medication Instructions Recorded Confirmed Cholecalciferol [Vitamin D3 (25 5,000 unit PO DAILY 06/04/15 04/09/20 Mcg = 1000 Iu)] Omeprazole [PriLOSEC] 20 mg PO BID 06/04/15 04/09/20 Cyanocobalamin (Vitamin B-12) 1,000 mcg PO DAILY 02/06/17 04/09/20 [Vitamin B-12] Dextroamphetamine/Amphetamine 20 mg PO DAILY 02/06/17 04/09/20 [Adderall Xr] Amitriptyline HCl [Elavil] 10 mg PO HS 04/07/20 04/09/20 DULoxetine HCL [Cymbalta] 20 mg PO DAILY 04/07/20 04/09/20 Galcanezumab-Gnlm [Emgality] 120 mg SQ Q30D 04/07/20 04/09/20 Previous Rx's Medication Instructions Recorded HYDROcodone/APAP 5-325MG [Sandy 1 tab PO Q6HR PRN 7 Days #28 tab 04/09/20 5-325] Allergies Allergy/AdvReac Type Severity Reaction Status Date / Time codeine Allergy Unknown Nausea & Verified 04/09/20 11:16 Vomiting Penicillins Allergy Unknown Rash/Hives Verified 04/09/20 11:16 sulfamethoxazole Allergy Unknown Unknown Verified 04/09/20 11:16 [From Bactrim] trimethoprim [From Bactrim] Allergy Unknown Unknown Verified 04/09/20 11:16 adhesive tape AdvReac Rash/Hives Verified 05/06/20 12:14 metal Allergy Unknown Unknown Uncoded 04/09/20 11:16 Review of Systems ROS Statement: Those systems with pertinent positive or pertinent negative responses have been documented in the HPI. ROS Other: All systems not noted in ROS Statement are negative. Past Medical History Past Medical History: Blood Disorder, GERD/Reflux, Skin Disorder, Sleep Apnea/CPAP/BIPAP Additional Past Medical History / Comment(s): USES C-PAP MACHINE, HEMOCHROMATOSIS, PSORIASIS, BLOOD IN STOOL . TAKES TOPAMAX TO HELP PREVENT HEADACHES. History of Any Multi-Drug Resistant Organisms: None Reported Past Surgical History: Adenoidectomy, Bariatric Surgery, Cholecystectomy, Orthopedic Surgery, Tonsillectomy, Tubal Ligation Additional Past Surgical History / Comment(s): LAP BAND INSERTED AND REMOVED, GASTRIC SLEEVE (2012), BRAIN SURGERY (MAY 2014) WITH PLATE INSERTED TO SUPPORT BRAIN AND REPAIR OF SPINAL FLUID LEAK. Right knee miniscus repair Apr 2020 Past Anesthesia/Blood Transfusion Reactions: Family History of Problems w/ Anesthesia, Motion Sickness, Postoperative Nausea & Vomiting (PONV) Additional Past Anesthesia/Blood Transfusion Reaction / Comment(s): FATHER HAS DIFFICULTY WAKING UP. PT STATES SHE IS SENSITIVE TO NARCOTICS AND GETS HEADACHE AND NAUSEA. Past Psychological History: ADD/ADHD, Anxiety, Depression Smoking Status: Former smoker, Vaper Past Alcohol Use History: Rare Past Drug Use History: Marijuana - Past Family History Mother Family Medical History: Diabetes Mellitus Father Family Medical History: Dementia Additional Family Medical History / Comment(s): Glucoma, Brain tumor - benin General Exam - General Exam Comments Initial Comments: GENERAL: Patient is well-developed and well-nourished. Patient is nontoxic and well- hydrated and is in mild distress. ENT: Neck is soft and supple. No significant lymphadenopathy is noted. Oropharynx is clear. Moist mucous membranes. Neck has full range of motion without eliciting any pain. EYES: The sclera were anicteric and conjunctiva were pink and moist. Extraocular movements were intact and pupils were equal round and reactive to light. Eyelids were unremarkable. PULMONARY: Unlabored respirations. Good breath sounds bilaterally. No audible rales rhonchi or wheezing was noted. CARDIOVASCULAR: There is a regular rate and rhythm without any murmurs gallops or rubs. ABDOMEN: Soft and nontender with normal bowel sounds. SKIN: Skin is clear with no lesions or rashes and otherwise unremarkable. NEUROLOGIC: Patient is alert and oriented x3. Cranial nerves II through XII are grossly intact. Motor and sensory are also intact. Normal speech, volume and content. Symmetrical smile. MUSCULOSKELETAL: Normal extremities with adequate strength and full range of motion. LYMPHATICS: No significant lymphadenopathy is noted PSYCHIATRIC: Normal psychiatric evaluation. Limitations: no limitations Course Vital Signs 05/06/20 12:10 Temperature 98.3 F Pulse Rate 69 Respiratory 18 Rate Blood Pressure 142/82 O2 Sat by Pulse 98 Oximetry Medical Decision Making - Medical Decision Making EKG shows normal sinus rhythm at 66 bpm NJ interval 138 QRS is 88 QT interval is 432 QTC is 452. Patient's EKG shows no ST segment elevation or depression CT of the brain shows no acute abnormality. I went back into the room after the patient received Benadryl and droperidol and the patient stated her headache was much improved and she wanted to go home. P atient also received a liter of normal saline. Disposition Clinical Impression: Acute headache Disposition: HOME SELF-CARE Condition: Good Instructions (If sedation given, give patient instructions): Acute Headache (ED) Is patient prescribed a controlled substance at d/c from ED?: No Referrals: Jin Murillo MD [Primary Care Provider] - 1-2 days Time of Disposition: 13:52
--- NOTE | 2020-05-06 13:20 | CT ---
EXAMINATION TYPE: CT brain wo con DATE OF EXAM: 05/06/2020 COMPARISON: 02/06/2017 INDICATION: Headache DLP: 1107.4 mGycm, Automated exposure control for dose reduction was used. CONTRAST: None CT of the brain is performed utilizing 3 mm thick sections through the posterior fossa and 3 mm thick sections through the remaining calvarium. Study is performed within 24 hours of arrival to the hosp ital. Exam is limited with the right portion of the calvarium and internal contents partially exclude d from the [id number]. No abnormal hyperdensity is present to suggest an acute intracranial hemorrhage. No mass lesion is evident. No acute infarcts are evident. Ventricles and sulci are appropriate for the patient age. Paranasal sinuses and mastoid air cells within the [id number] are clear. Prior left craniotomy changes are evident. IMPRESSIONS: 1. Normal limited CT Brain. 2. No suspicious abnormality within the [id number] to account for patient's headache symptoms.
[2020-05-06 13:59] VITALS: BP 150/89; RESP 16
== END 2020-05-06 13:59 | disposition home or self-care (01) ==
LOC: EC 11:58
DX: G43.909 Migraine, unspecified, not intractable, without status migrainosus (principal); K21.9 Gastro-esophageal reflux disease without esophagitis; F32.9 Major depressive disorder, single episode, unspecified; F41.9 Anxiety disorder, unspecified; F12.90 Cannabis use, unspecified, uncomplicated; Z87.891 Personal history of nicotine dependence; Z90.49 Acquired absence of other specified parts of digestive tract
CPT/HCPCS: 93005; 70450; 99283; 96374; 96375; 96361; J1200; J1790

== ENCOUNTER → 2020-09-09 | Outpatient (CLI) | payer MEDICARE ==
--- NOTE | 2020-09-11 12:00 | MM ---
Reason for exam: screening (asymptomatic). Last mammogram was performed 1 year and 8 months ago. History: Family history of breast cancer in maternal grandmother at age 50 and breast cancer in sister at age 61. Took hormonal contraceptives for 10 years. Physical Findings: A clinical breast exam by your physician is recommended on an annual basis and results should be correlated with mammographic findings. MG 3D Screening Mammo W/Cad Bilateral CC and MLO view(s) were taken. Prior study comparison: January 04, 2019, bilateral MG screening mammo w CAD. September 04, 2017, bilateral MG 3d screening mammo w/cad. May 11, 2016, bilateral MG 3d diag mammo w/cad TESS. There are scattered fibroglandular densities. No significant changes when compared with prior studies. ASSESSMENT: Negative, BI-RAD 1 RECOMMENDATION: Routine screening mammogram of both breasts in 1 year.
== END | disposition home or self-care (01) ==
LOC: RADMAMWWP 08:18
PROVIDERS: ATTEND Family Medicine
DX: Z12.31 Encounter for screening mammogram for malignant neoplasm of breast (principal); Z80.3 Family history of malignant neoplasm of breast
CPT/HCPCS: 77063; 77067

== ENCOUNTER → 2020-12-18 | Outpatient (CLI) | payer MEDICARE ==
--- NOTE | 2020-12-18 14:16 | MR ---
EXAMINATION TYPE: MR shoulder RT wo con DATE OF EXAM: 12/18/2020 COMPARISON: None. HISTORY: R shoulder pain TECHNIQUE: Multiplanar, multisequence imaging of the right shoulder is performed without contrast. FINDINGS: Rotator Cuff: Small focal articular surface tear measuring 8 to 9 mm AP diameter sagittal image 6 inv olving the anterior 1/3-1/2 of the supraspinatus tendon fibers. Infraspinatus tendon intact. Rotator cuff muscle bulk preserved. Subscapularis tendon intact. Acromioclavicular Joint: Mild to moderate narrowing and mild spurring. Mild/moderate capsular hypertr ophy. Underlying fat plane maintained. Distal acromion morphology unremarkable. Glenohumeral Joint: Mild to moderate narrowing without significant effusion or spurring. Labrum: The labrum appears grossly intact given limitation of non-arthrogram study. Biceps Tendon: The long head of biceps is in normal location within bicipital groove. Bone marrow signal: Overall heterogeneity suggesting red marrow reconversion. No suspicious edema. Other: No additional significant abnormality is appreciated. IMPRESSION: Partial articular surface tear anterior fibers of the supraspinatus tendon.
== END | disposition home or self-care (01) ==
LOC: RADMRIMAIN 12:41
PROVIDERS: ATTEND Orthopaedic Surgery
DX: M75.111 Incomplete rotator cuff tear or rupture of right shoulder, not specified as traumatic (principal)

== ENCOUNTER 2021-04-29 06:01 | Day surgery (SDC) | payer MEDICARE ==
[2021-04-27 16:01] VITALS: BMI 38.7
--- NOTE | 2021-04-28 17:05 | HP ---
HISTORY AND PHYSICAL DATE OF SURGERY: 04/29/2021 Antonio Lester is a 51-year-old patient seen with progressive right shoulder pain. We discussed options for treatment. Patient elected to proceed with right shoulder arthroscopy. Consent was obtained. PAST MEDICAL HISTORY: Gastroesophageal reflux disease. PAST SURGICAL HISTORY: Tubal ligation, carpal tunnel release. DAILY MEDICATIONS: Adderall, Flexeril, omeprazole. ALLERGIES: BACTRIM, CODEINE. SOCIAL HISTORY: She denies tobacco use. PHYSICAL EVALUATION OF THE RIGHT SHOULDER: Flexion is 140 degrees. Abduction is 110 degrees. External rotation is 40 degrees with some pain and weakness. Tenderness along the anterolateral acromion and rotator cuff insertion site. Impingement is positive at 80 degrees. Drop-arm sign is positive. Distal neurovascular exam is intact. Radiographs of the right shoulder revealed a type 2 acromion and evidence for acromioclavicular joint osteoarthritis. MRI of right shoulder revealed rotator cuff tendon tear. IMPRESSION: 1. Right shoulder impingement with rotator cuff tear. 2. Right shoulder acromioclavicular joint osteoarthritis. PLAN: Right shoulder arthroscopy with subacromial decompression, arthroscopic rotator cuff repair, Dheeraj procedure and debridement. MMODL / IJN: [id number] /
[2021-04-29] MEDS ORDERED: HYDROmorphone 0.5 MG/0.5 ML SYRINGE IVP PRN (06:13)
[2021-04-29] MEDS ORDERED: MIDAZOLAM 2 MG/2 ML VIAL IV PRN (06:13)
[2021-04-29] MEDS ORDERED: LACTATED RINGERS 1,000 ML IV SCH (06:13)
[2021-04-29] MEDS ORDERED: DEXAMETHASONE SOD PHOSPHATE 4 MG/ML 1 ML VIAL IV ONE (06:13)
[2021-04-29 06:36] VITALS: TEMP 97.8
[2021-04-29] MEDS ORDERED: MIDAZOLAM 2 MG/2 ML VIAL IVP ONE (06:54)
[2021-04-29] MEDS: ONDANSETRON 4 MG/2 ML VIAL IVP ONE ×2 (07:11→10:16)
[2021-04-29] MEDS ORDERED: SCOPOLAMINE 1.5MG/72HR PATCH TRANSDERM ONE (07:15)
[2021-04-29] MEDS ORDERED: LIDOCAINE 1% INJ 10MG/ML (20 ML MDV) ONE (07:22)
[2021-04-29] MEDS ORDERED: SUCCINYLCHOLINE CHLORIDE 100 MG/5 ML SYR IV ONE (07:22)
[2021-04-29] MEDS ORDERED: GLYCOPYRROLATE 0.2 MG/ML 2 ML VIAL ONE (07:22)
[2021-04-29] MEDS ORDERED: KETOROLAC 15 MG/ML 1 ML VIAL ONE (07:22)
[2021-04-29] MEDS ORDERED: NEOSTIGMINE 1 MG/ML 10 ML VIAL ONE (07:22)
[2021-04-29] MEDS ORDERED: fentaNYL (PF) 50 MCG/ML 2 ML AMP ONE (07:22)
[2021-04-29] MEDS ORDERED: ROCURONIUM 10 MG/ML (5 ML VIAL) IV ONE (07:22)
[2021-04-29] MEDS ORDERED: ROPIVACAINE 5 MG/ML 30 ML VIAL ONE (07:22)
[2021-04-29] MEDS ORDERED: PROPOFOL 10 MG/ML 20 ML VIAL IV ONE (07:22)
[2021-04-29] MEDS ORDERED: LABETALOL 5 MG/ML VIAL MDV ONE (07:22)
--- NOTE | 2021-04-29 08:56 | P.OP ---
Date of Procedure: 04/29/21 Preoperative Diagnosis: Right shoulder impingement Postoperative Diagnosis: 1. Right shoulder rotator cuff tear 2. Right shoulder acromioclavicular joint osteoarthritis 3. Right shoulder impingement Procedure(s) Performed: 1. Right shoulder arthroscopic rotator cuff repair 2. Right shoulder acromioclavicular joint osteoarthritis 3. Right shoulder impingement Implants: 14.75 Arthrex swivel lock anchor Anesthesia: GETA, regional (Interscalene block) Surgeon: Mustapha Villa Senior Administrative Services Officer #1: Milton Gunn Estimated Blood Loss (ml): 10 Pathology: none sent Condition: stable Disposition: PACU Indications for Procedure: 51-year-old patient seen with progressive right shoulder pain. After treatment options were discussed, she elected to proceed with arthroscopy. Operative Findings: See description of procedure Description of Procedure: Patient underwent an interscalene block by department of anesthesia. The patient was then taken to the operative suite. The patient underwent a general anesthetic by the department of anesthesia. The patient was placed into a lateral position and secured. There was appropriate padding of the bony prominence. Right shoulder was then prepped and draped in normal sterile orthopedic fashion. We placed the extremity in 10 pounds of longitudinal traction. A posterior incision was now made for a posterior working portal site. The trocar and cannula were inserted into the glenohumeral joint. Arthroscopy was initiated. Spinal needle was now inserted anteriorly, to ascertain the anterior working portal site. An incision was now made in that area, a trocar was inserted followed by a probe. Was some superficial fraying of the superior labrum. There was no significant chondromalacia present. The remaining labrum was probed and it was found be stable. The biceps was intact and stable. I debrided out some superficial fraying with a motorized shaver. I again probed the labrum and anchor there were both stable. Instruments were now removed from glenohumeral joint. Utilizing the posterior working portal site, the trocar and cannula were inserted into the subacromial space. Arthroscopy initiated. I made an incision 2 fingerbreadths lateral to the acromion. I introduced my trocar followed by my ArthroCare ablator. I now began ablating thick subacromial bursal tissue, which exposed the undersurface of the anterior acromion. There was diminished subacromial space. There was a very prominent anterior acromion. A motorized bur was introduced and a subacromial decompression was performed. I also excised some osteophytes off the inferior aspect of the distal clavicle. The AC joint was visualized and noted to be fairly arthritic. The motorized bur was introduced in the anterior portal site and a Dheeraj procedure was performed without difficulty, decompressing the AC joint nicely. I turned my attention to the rotator cuff. There was significant partial tearing along the distal supraspinatus area. Upon probing the area noted a full-thickness perforation. I now introduced a motorized shaver and debrided the margins getting down to stable tendon tissue. The defect/tear measuring approximately 11.5 cm and was freely mobile over the footprint. I abraded the footprint with a motorized bur. With the assistance of Kenny LOPES I pasted 3 everted mattress sutures through good bites of rotator cuff tendon. I punched a hole in the footprint area for insertion of an anchor. All 6 limbs of suture were passed through the eyelet of a 4.75 Arthrex swivel lock anchor. I placed the eyelet into our pre- punched hole and held in position while Kenny LOPES tension all the sutures and deployed the anchor with good fixation noted. All residual suture limbs were now clipped. We had good compression of the tendon along the entire footprint. Instruments now removed from the portal sites. All portal sites were approximated with nylon suture. Sterile dressings were applied followed by a shoulder sling. Milton LOPES assisted in this complex case. The patient was awakened, transferred to a bed, and taken to recovery in stable condition.
[2021-04-29 11:05] VITALS: BP 121/84; RESP 18
[2021-04-29 11:24] VITALS: PULSE 83
--- NOTE | 2021-04-29 19:49 | P.ANPRN ---
Procedure Note - Anesthesia - Nerve Block Performed Right Interscalene Single Time Out Performed: Yes Date of Procedure: 04/29/21 Procedure Start Time: 06:54 Procedure Stop Time: 07:02 Location of Patient: PreOp Indication: Acute Post-Operative Pain, Requested by Surgeon Sedation Type: Sedate with meaningful contact maintained Preparation: Sterile Prep Position: Supine Needle Types: Pajunk Needle Gauge: 21 Ultrasound used to visualize needle placement: Yes Ultrasound used to observe medication spread: Yes Blood Aspirated: No Pain Paresthesia on Injection Noted: No Resistance on Injection: Normal Image Stored and Saved: Yes Events: Uneventful and Well Tolerated (ropi .5% 20cc plus dexamethasone 4mg)
== END 2021-04-29 12:03 | disposition home or self-care (01) ==
LOC: OR 06:01
PROVIDERS: ATTEND Orthopaedic Surgery
DX: M75.41 Impingement syndrome of right shoulder (principal); K21.9 Gastro-esophageal reflux disease without esophagitis
CPT/HCPCS: 29827; 64415; 76942; C1713; J2250; J1100; J2710; J0690; J2405; J2001; J3010; J2795; J1885; J0330; J2704; J1170

== ENCOUNTER 2021-09-13 12:55 | Emergency (ER) | payer MEDICARE ==
[2021-09-13 13:19] VITALS: TEMP 97.9
--- NOTE | 2021-09-13 14:00 | ED ---
General Adult HPI - General Chief complaint: Upper Respiratory Infection Stated complaint: Covid+,wants antibodies Time Seen by Provider: 09/13/21 13:30 Source: patient, RN notes reviewed, old records reviewed Mode of arrival: ambulatory Limitations: no limitations - History of Present Illness Initial comments: 51-year-old female with myalgia, nausea, tested positive for coronavirus at home. No dyspnea. No vomiting. No measured fever. Patient is vaccinated against coronavirus. Presenting to the emergency department for monoclonal antibody therapy. - Related Data Home Medications Medication Instructions Recorded Confirmed Cholecalciferol [Vitamin D3 (25 5,000 unit PO DAILY 06/04/15 04/29/21 Mcg = 1000 Iu)] Omeprazole [PriLOSEC] 20 mg PO BID 06/04/15 04/29/21 Acetaminophen/Diphenhydramine 2 tab PO HS 04/27/21 04/29/21 [Tylenol PM 500-25mg] Dextroamphetamine/Amphetamine 30 mg PO QAM 04/27/21 04/29/21 [Adderall Xr] Fremanezumab-Vfrm [Ajovy 225 mg SQ Q30D 04/27/21 04/29/21 Autoinjector] Multivitamins, Thera [Multivitamin 1 tab PO DAILY 04/27/21 04/29/21 (formulary)] Rizatriptan Benzoate [Rizatriptan] 10 mg PO DAILY PRN 04/27/21 04/29/21 Sertraline HCl [Zoloft] 100 mg PO DAILY 04/27/21 04/29/21 Previous Rx's Medication Instructions Recorded HYDROcodone/APAP 7.5-325MG [[place] 1 each PO Q6HR PRN #28 tab 04/29/21 7.5] Allergies Allergy/AdvReac Type Severity Reaction Status Date / Time codeine Allergy Unknown Nausea & Verified 09/13/21 13:19 Vomiting Penicillins Allergy Unknown Rash/Hives Verified 09/13/21 13:19 sulfamethoxazole Allergy Unknown Unknown Verified 09/13/21 13:19 [From Bactrim] trimethoprim [From Bactrim] Allergy Unknown Unknown Verified 09/13/21 13:19 adhesive tape AdvReac Rash/Hives Verified 09/13/21 13:19 metal Allergy Unknown Unknown Uncoded 09/13/21 13:19 Review of Systems ROS Statement: Those systems with pertinent positive or pertinent negative responses have been documented in the HPI. ROS Other: All systems not noted in ROS Statement are negative. Past Medical History Past Medical History: Blood Disorder, GERD/Reflux, Skin Disorder, Sleep Apnea/CPAP/BIPAP Additional Past Medical History / Comment(s): USES C-PAP MACHINE, HEMOCHROMATOSIS, PSORIASIS, BLOOD IN STOOL . TAKES TOPAMAX TO HELP PREVENT HEAD ACHES. History of Any Multi-Drug Resistant Organisms: None Reported Past Surgical History: Adenoidectomy, Bariatric Surgery, Cholecystectomy, Orthopedic Surgery, Tonsillectomy, Tubal Ligation Additional Past Surgical History / Comment(s): LAP BAND INSERTED AND REMOVED, GASTRIC SLEEVE (2012), BRAIN SURGERY (MAY 2014) WITH PLATE INSERTED TO SUPPORT BRAIN AND REPAIR OF SPINAL FLUID LEAK. Right knee miniscus repair Apr 2020 Past Anesthesia/Blood Transfusion Reactions: Family History of Problems w/ Anesthesia, Motion Sickness, Postoperative Nausea & Vomiting (PONV) Additional Past Anesthesia/Blood Transfusion Reaction / Comment(s): FATHER HAS DIFFICULTY WAKING UP. PT STATES SHE IS SENSITIVE TO NARCOTICS AND GETS HEADACHE AND NAUSEA. Past Psychological History: ADD/ADHD, Anxiety, Depression Smoking Status: Former smoker, Vaper - Past Family History Mother Family Medical History: Diabetes Mellitus Father Family Medical History: Dementia Additional Family Medical History / Comment(s): Glucoma, Brain tumor - benin General Exam Limitations: no limitations General appearance: alert, in no apparent distress Head exam: Present: atraumatic, normocephalic Eye exam: Present: normal appearance, PERRL ENT exam: Present: normal exam, mucous membranes moist Respiratory exam: Present: normal lung sounds bilaterally. Absent: respiratory distress, wheezes Cardiovascular Exam: Present: regular rate, normal rhythm GI/Abdominal exam: Present: soft. Absent: distended, tenderness, guarding Extremities exam: Present: normal inspection, normal capillary refill. Absent: pedal edema Neurological exam: Present: alert, oriented X3, CN II-XII intact. Absent: motor sensory deficit Psychiatric exam: Present: normal affect, normal mood Skin exam: Present: warm, dry, intact Course Vital Signs 09/13/21 13:15 Temperature 97.9 F Pulse Rate 90 Respiratory 20 Rate Blood Pressure 146/90 O2 Sat by Pulse 97 Oximetry Medical Decision Making - Medical Decision Making Patient with coronavirus, 24 hours of symptoms, she needs monoclonal antibodies. She is otherwise well-appearing without history distress or hypoxia. She is instructed to continue vitamins at home follow-up with her primary care physician. Disposition Clinical Impression: COVID-19 Disposition: HOME SELF-CARE Condition: Fair Instructions (If sedation given, give patient instructions): COVID-19 (Coronavirus Disease 2019) (ED) Is patient prescribed a controlled substance at d/c from ED?: No Referrals: Jin Murillo MD [Primary Care Provider] - 1-2 days Time of Disposition: 15:00
[2021-09-13] MEDS ORDERED: BEBTELOVIMAB (EUA) 175 MG/2 ML VIAL IV ONE (14:30)
[2021-09-13 15:22] VITALS: BP 138/92; PULSE 88; RESP 18
== END 2021-09-13 15:21 | disposition home or self-care (01) ==
LOC: EC 12:55
DX: U07.1 COVID-19 (principal); K21.9 Gastro-esophageal reflux disease without esophagitis; F32.A Depression, unspecified; F41.9 Anxiety disorder, unspecified; F90.9 Attention-deficit hyperactivity disorder, unspecified type; Z87.891 Personal history of nicotine dependence; Z79.899 Other long term (current) drug therapy
CPT/HCPCS: 99283; Q0222

== ENCOUNTER → 2021-11-26 | Outpatient (CLI) | payer MEDICARE ==
--- NOTE | 2021-11-26 09:24 | MR ---
EXAMINATION TYPE: MR shoulder LT wo con DATE OF EXAM: 11/26/2021 COMPARISON: None. HISTORY: L shoulder pain with difficulty raising overhead for 6+ months. TECHNIQUE: Multiplanar, multisequence imaging of the left shoulder is performed without contrast. FINDINGS: Rotator Cuff: Increased signal involving the anterior superior portion of the distal supraspinatus mu scle bulk and tendon with focal tear near the articular surface measuring 5 mm AP diameter sagittal i mage 9 x 7 mm transversely coronal image 13. Infraspinatus tendon intact. Subscapularis tendon intact . Rotator cuff muscle bulk preserved. Acromioclavicular Joint: Moderate narrowing and spurring. Moderate capsular hypertrophy. Loss of unde rlying fat plane noted sagittal image 9. Glenohumeral Joint: Small joint effusion. Mild narrowing. Labrum: Increased signal superior labrum consistent with degenerative tearing. Biceps Tendon: The long head of biceps is in normal location within bicipital groove. Some increased signal and thickening of the intra-articular portion noted. Bone marrow signal: Subchondral cystic change posterolateral aspect of the humeral head. Other: No additional significant abnormality is appreciated. IMPRESSION: 1. Tendinosis and partial tearing of the distal supraspinatus tendon. 2. Tendinosis intra-articular portion long head of biceps tendon. 3. Fairly moderate degenerative changes in the left shoulder as detailed above.
== END | disposition home or self-care (01) ==
LOC: RADMRIMAIN 07:22
PROVIDERS: ATTEND Orthopaedic Surgery
DX: M19.012 Primary osteoarthritis, left shoulder (principal); M75.112 Incomplete rotator cuff tear or rupture of left shoulder, not specified as traumatic; M67.814 Other specified disorders of tendon, left shoulder

== ENCOUNTER → 2022-02-17 | Outpatient (CLI) | payer MEDICARE ==
--- NOTE | 2022-02-17 08:43 | US ---
EXAMINATION TYPE: US kidneys/renal and bladder DATE OF EXAM: 02/17/2022 COMPARISON: NONE CLINICAL HISTORY: N20.0 kidney stone. right renal stone recently removed, no symptoms today EXAM MEASUREMENTS: Right Kidney: 12.3 x 4.8 x 4.9 cm Left Kidney: 10.9 x 4.2 x 4.8 cm Right Kidney: prominent renal pelvis may be mild hydro versus extrarenal pelvis. Left Kidney: No hydronephrosis or masses seen Bladder: wnl Bilateral Jets seen: Yes IMPRESSION: 1. Mild right hydronephrosis.
[2022-02-17 17:22] LABS: Phosphorus 3.7 mg/dL (2.4-5.1)
[2022-02-17 17:30] LABS: African American GFR (CKD) 86.3 (60.0-200.0); Calcium 9.3 mg/dL (8.7-10.3); Carbon Dioxide 30.1 mmol/L (20.0-27.5); Non-African American GFR(CKD) 74.5 (60.0-200.0); Uric Acid 4.2 mg/dL (2.9-7.7)
== END | disposition home or self-care (01) ==
LOC: RADUSWWP 07:04
PROVIDERS: ATTEND Urology
DX: N13.30 Unspecified hydronephrosis (principal); N20.0 Calculus of kidney
CPT/HCPCS: 76770; 82310; 82374; 82435; 82565; 83970; 84100; 84550

== ENCOUNTER → 2022-02-19 | Outpatient (CLI) | payer MEDICARE | END | disposition home or self-care (01) | LOC: LABWHC1 08:46 | PROVIDERS: ATTEND Urology | DX: Z53.9 Procedure and treatment not carried out, unspecified reason (principal) ==

== ENCOUNTER → 2022-02-23 | Outpatient (CLI) | payer MEDICARE ==
[2022-02-19 12:06] LABS: Phosphorus 3.3 mg/dL (2.4-5.1)
[2022-02-19 12:16] LABS: African American GFR (CKD) 95.6 (60.0-200.0); Carbon Dioxide 26.9 mmol/L (20.0-27.5); Non-African American GFR(CKD) 82.4 (60.0-200.0); Uric Acid 4.1 mg/dL (2.9-7.7)
[2022-02-19 13:25] LABS: Creatinine 24 Hour,Urine 1483.8 mg/24hr (800.0-1800.0)
[2022-02-19 23:02] LABS: Uric Acid 24 Hour,Urine 0.6 g/24Hr (0.25-0.75)
[2022-02-19 23:36] LABS: Potassium 24 Hour,Urine 39.8 mmol/24Hr (25.0-120.0)
--- NOTE | 2022-02-23 13:59 | MR ---
EXAMINATION TYPE: MR lumbar spine wo con DATE OF EXAM: 02/23/2022 1:50 PM COMPARISON: 05/12/2017 HISTORY: Lower back pain, BLE radiculopathy. Multiplanar, MultiSpin echo imaging of the lumbar spine was performed. L1-L2: Normal disc appearance without desiccation. No herniation, protrusion or disc bulging. No ca nal stenosis is present. Foramina are patent bilaterally. L2-L3: Normal disc appearance without desiccation. No herniation, protrusion or disc bulging. No ca nal stenosis is present. Foramina are patent bilaterally. L3-L4: There is mild disc desiccation noted. Disc bulge paracentrally to the left at the level of the neural foramen resulting in neural foraminal encroachment. No herniation or central stenosis. Right neural foramen is patent. L4-L5: Mild disc desiccation noted. Posterior disc bulge with mild effacement of the ventral thecal s ac. Mild facet joint arthropathy. Mild bilateral neural foraminal encroachment. L5-S1: Mild disc desiccation noted. Posterocentral disc bulge. No evidence for disc herniation or pro trusion. No central stenosis or foraminal encroachment. Mild facet joint arthropathy. Lumbar segments are intact. No paraspinal masses are identified. Conus medullaris has a normal appe arance. IMPRESSION: 1. Degenerative disc disease as discussed. 2. Left-sided neural foraminal encroachment at L3-4 related to disc bulge. 3. Bilateral neural foraminal encroachment at L4-5
== END | disposition home or self-care (01) ==
LOC: RADMRIMAIN 13:01
PROVIDERS: ATTEND Nurse Practitioner Family
DX: M51.16 Intervertebral disc disorders with radiculopathy, lumbar region (principal); M99.73 Connective tissue and disc stenosis of intervertebral foramina of lumbar region; M48.061 Spinal stenosis, lumbar region without neurogenic claudication
CPT/HCPCS: 72148; 81003; 81050; 82310; 82340; 82374; 82435; 82507; 82565; 82570; 83945; 83970; 84100; 84133; 84300; 84550; 84560

== ENCOUNTER → 2022-04-04 | Outpatient (CLI) | payer MEDICARE ==
--- NOTE | 2022-04-04 12:27 | CT ---
EXAMINATION TYPE: CT urogram wo/w con DATE OF EXAM: 04/04/2022 HISTORY: Hydronephrosis CT DLP: 889 Gycm Automated Exposure Control for Dose Reduction was Utilized. CONTRAST: CT scan of the abdomen and pelvis is performed without oral and without and with IV Contrast, patient injected with 100 mL of Isovue 300. Urogram protocol with 3-D reconstructed images created on an indeni workstation. COMPARISON: Renal ultrasound February 17, 2022 FINDINGS: KUB: Noncontrast images show no renal calculi bilaterally. Postcontrast images show symmetric cortico medullary uptake and excretion without concerning solid or cystic renal mass or hydronephrosis seen b ilaterally. Mild fullness right greater than left pelvis without calyceal dilatation consistent with extrarenal pelvis. Satisfactory enhancement of the bilateral ureters. Urinary bladder shows no worris ome mass or calculus. LUNG BASES: No significant abnormality is appreciated. LIVER/GB: Cholecystectomy clips are seen. PANCREAS: No significant abnormality is seen. SPLEEN: No significant abnormality is seen. ADRENALS: No significant abnormality is seen. BOWEL: Surgical changes from gastric bypass procedure. No suspicious small or large bowel dilatation. UTERUS/ADNEXA: Anteverted uterus. Small amount of free fluid right pelvic cul-de-sac axial image 75-y ear-old is nonspecific. LYMPH NODES: No greater than 1cm abdominal or pelvic lymph nodes are appreciated. OSSEOUS STRUCTURES: No significant abnormality is seen. OTHER: No significant additional abnormality is seen. IMPRESSION: No hydronephrosis seen bilaterally. No delayed excretion bilaterally. Unremarkable study.
== END | disposition home or self-care (01) ==
LOC: RADCTMAIN 09:26
PROVIDERS: ATTEND Urology
DX: N13.39 Other hydronephrosis (principal)
CPT/HCPCS: 74178; 74400; Q9967

== ENCOUNTER 2022-06-07 07:25 | Day surgery (SDC) | payer MEDICARE ==
[~2022-06-07 07:25] MED LIST changes: -DEXAMETHASONE SOD PHOSPHATE 4 MG/ML 1 ML VIAL IV ONE; -MIDAZOLAM 2 MG/2 ML VIAL IV PRN; -ONDANSETRON 4 MG/2 ML VIAL IVP ONE
[2022-06-07 07:49] VITALS: TEMP 97.2
[2022-06-07 07:59] LABS: Glucose,Whole Blood 96 mg/dL (70-110)
[2022-06-07] MEDS ORDERED: IOPAMIDOL M200 10 ML VIAL ONE (08:09)
[2022-06-07] MEDS ORDERED: MIDAZOLAM 2 MG/2 ML VIAL ONE (08:09)
[2022-06-07] MEDS ORDERED: fentaNYL (PF) 50 MCG/ML 2 ML AMP ONE (08:09)
[2022-06-07] MEDS ORDERED: methylPREDNISolone ACETATE 80 MG/ML 1 ML VIAL ONE (08:09)
--- NOTE | 2022-06-07 08:19 | P.PCN ---
Date of Procedure: 06/07/22 Procedure(s) Performed: PREOPERATIVE DIAGNOSIS: 1- Lumbar Degenerative Disc Diseases 2-Lumbar spondylosis with Facet arthropathy without myelopathy. 3-lumbar spinal stenosis POSTOPERATIVE DIAGNOSIS: 1-lumbar degenerative disc disease. 2-lumbar spondylosis with facet arthropathy without myelopathy. 3-lumbar spinal stenosis. PROCEDURE 1. Lumbar epidural steroid injection under fluoroscopic guidance at the L4-5 level. (Fluoroscopy imaging was available in radiology department) 2. Lumbar epidurogram. ANESTHESIA: moderate sedation with intravenous Versed 2 mg ,and fentanyle 50 Mcg Sedation start time : 811 Sedation end time : 815 EBL: Minimal PROCEDURE INDICATION: The patient with low back pain and radiculitis symptoms unresponsive to conservative treatment. Fluoroscopy was used to optimize visualization of the needle placement and to maximize safety. PROCEDURE DESCRIPTION / TECHNIQUE: The patient was seen and identified in the preoperative area. Risks, benefits, complications including but not limited to infections ,bleeding ,allergic reaction to the medications ,nerve damage and not complete pain releife , and alternatives were discussed with the patient. The patient agreed to proceed with the procedure and signed the consent. IV was started, and vital signs were stable. Patient was taken to the OR and time out was completed. The patient was placed in the prone position on procedure table and a pillow was placed under the abdomen to reduce lumbar lordosis. The lumbosacral area was prepped and draped in the usual sterile fashion.ere closely monitored during the procedure. Con scious sedation was used during the procedure to decrease patients anxiety. Vital signs was monitered during the entire procedure. Using anterior-posterior fluoroscopy, the L4-5 interlaminar space was identified and the skin over this site was marked and then infiltrated with 1% lidocaine subcutaneously. Subsequently, a 20-gauge Tuohy epidural needle was inserted and advanced toward the epidural space using the ``Loss of resistance technique and guided by AP and lateral fluoroscopy. The correct needle position in the epidural space was verified with the injection of 2 mL of the water soluble contrast dye Isovue 200 contrast and observing an excellent epidurogram with the epidural spread of the dye, after negative aspiration for blood and CSF and in the absence of paresthesias. Again after negative aspiration, a 6 ml mixture containing 80 mg of Depo-medrol ( Preservetive Free ), and 2 ml of preservative free Normal Saline, and 2 ml of preservative free lidocaine 1% solution was inj ected and a washout of epidurogram was seen. Needle was withdrawn intact, skin was cleansed, and bandages were applied. COMPLICATIONS: None DISPOSITION / PLANS: The patient was placed in a supine position and transferred to the recovery area in a stable condition for observation. There was no evidence of lower extremity motor or sensory deficit after the procedure. Patient was discharged from the recovery room after meeting discharge criteria. Home discharge instructions were given to the patient by the staff. The patient was reexamined prior to discharge. The patient will schedule a follow up in the clinic in 2-4 weeks.
[2022-06-07] MEDS ORDERED: IV FLUID CONTINUATION 1,000 ML IV ONE (08:20)
[2022-06-07 08:27] VITALS: RESP 15
[2022-06-07 08:47] VITALS: BP 129/70; PULSE 72
--- NOTE | 2022-06-07 09:22 | FL ---
EXAMINATION TYPE: FL guided pain mgmt statistic DATE OF EXAM: 06/07/2022 HISTORY: Fluoroscopy time [id number] of fluoroscopy provided. IMPRESSION: 1. Fluoroscopy time.
== END 2022-06-07 08:56 | disposition home or self-care (01) ==
LOC: ORPAIN 07:25
PROVIDERS: ATTEND Specialist
DX: M51.16 Intervertebral disc disorders with radiculopathy, lumbar region (principal); M47.26 Other spondylosis with radiculopathy, lumbar region; M48.061 Spinal stenosis, lumbar region without neurogenic claudication; Z88.8 Allergy status to other drugs, medicaments and biological substances
CPT/HCPCS: 81025; 62323; J2250; J1040; J3010; Q9966

== ENCOUNTER → 2022-07-20 | Outpatient (CLI) | payer MEDICARE ==
[2022-07-20 09:32] VITALS: BP 144/86; PULSE 75; RESP 18; TEMP 98.1
--- NOTE | 2022-07-20 15:00 | P.PAINPG ---
PQRS Measure Charge Sheet Comment: A 52 yr old female with a history of severe and chronic LBP secondary to lumbar DDD and spondylosis with facet arthropathy without myelopathy presents today for evaluation s/p JENNY L4-5. Pt states she experienced 0% pain relief x 6 wks s/p procedure. Pain level is provoked at 8/10 in intensity, constant, lo calized in the lumbar spine, sore in character w shooting towards the BL hips. Pain is provoked by bending, lifting. Pain is alleviated with PT w massage x 6 wks in 2020, chiropractic treatments x 4 sessions in 2021 due to insurance limits, heat, ice, meds, topical, hot showers, cold compression device, repositioning and rest. Interventional pain procedures completed include JENNY L4-5 Patient is currently on Az Serrano, Ibu, CBD topical, Cannabis edibles Patient denies any side effects of the medication(s), denies excessive drowsiness or sleepiness, denies suicidal ideation and reports that the current pain medication is helping to control the pain and improve activities of daily living. Patient denies any motor or sensory deficits. Patient denies any fever or night sweats, denies any change in the bowel movements or urination. Physical Examination: -Constitutional: Cooperative. Not in acute distress . - Neurologic: Cranial nerve II to XII intact. No focal neurological deficits. - Psychatric: Alert & oriented x 3. Matching mood & appropriate affect. Judgment and insight intact. - Musculoskeletal: Cervical spine: Muscle bulk/ tone/ strength in the bilateral upper extremities normal Vertebral body tenderness to palpation over Spurling test positive Distraction test positive Facet loading test positive TTP Thoracic spine Muscle bulk / tone/ strength in the bilateral paraspinal muscles normal Vertebral body tender to palpation over Facet loading test positive TTP Lumbar spine: Motor bulk/ tone/ strength lower extremities , thigh and legs : 5/5 Deep tendon reflexes : Normal Knee Jerk. Normal Ankle Jerk . Vertebral body tenderness to palpation over Lumbar Facet Loading Test positive on BL L4-L5, L5-S1 Straight Leg Raise: positive at 30 degrees right side/ left side Gaenslen's Test positive Sacral spine : Severe tenderness over the Sacroiliac joint: right side / left side Range of motion: Flexion of the lumbar spine <60 degrees Range of motion: Extension of the lumbar spine <20 degrees Gaenslen's Test positive right side / left side Mally test: positive right side / left side Thigh Thrust Test positive right side / left side Sacral Thrust Test positive right side / left side Assessment and plan: Chronic LBP secondary to lumbar DDD, spondylosis with facet arthropathy without myelopathy Recommendation of BL facet block of the medial branches L4-L5, L5-S1 #1. May need a series of injections for optimal pain relief. Risks, benefits of procedure discussed and pt verbalized understanding. Admits to anticoagulant use or medical history of diabetes. Protocol for discontinuation/ continuation of medications maddy procedure discussed. All questions answered. I have spent less than 30 minutes on patient care today. Dr Zamora was available by phone for the evaluation of this patient. The time was used to review the medical records including relevant urine studies and Prescription history (MAPs), review of the available imaging, evaluation and examination of the patient, coordination of care with the medical staff and if applicable referring physicians, as well as creation of the medical record PQRS Narrative: Smoking Status Former smoker Hx Alcohol Use (MH) No Home Medications: Ambulatory Orders Cholecalciferol [Vitamin D3 (25 Mcg = 1000 Iu)] 5,000 unit PO DAILY 06/04/15 Omeprazole [PriLOSEC] 20 mg PO BID 06/04/15 Acetaminophen/Diphenhydramine [Tylenol PM 500-25mg] 2 tab PO HS PRN 04/27/21 Dextroamphetamine/Amphetamine [Adderall Xr] 30 mg PO QAM 04/27/21 Multivitamins, Thera [Multivitamin (formulary)] 1 tab PO DAILY 04/27/21 Rizatriptan Benzoate [Rizatriptan] 10 mg PO DAILY PRN 04/27/21 Sertraline HCl [Zoloft] 100 mg PO HS 04/27/21 Alpha Lipoic Acid/Biotin [Alpha Lipoic Sustain-Biotin Tb] 1 each PO DAILY 06/06/22 Galcanezumab-Gnlm [Emgality Pen] 120 mg SQ DAILY PRN 06/06/22 Semaglutide [Ozempic] 1 mg SQ WEEKLY 06/06/22 Tumeric Black Pepper 500 mg PO DAILY 06/06/22 Ibuprofen [Motrin] 600 mg PO DAILY 06/07/22 Controlled Substance Measures - Controlled Substance Measures Is patient prescribed a controlled substance at discharge?: No
== END ==
LOC: PNWHC3 08:31
PROVIDERS: ATTEND Specialist
DX: M51.37 Other intervertebral disc degeneration, lumbosacral region (principal); M47.817 Spondylosis without myelopathy or radiculopathy, lumbosacral region; G89.29 Other chronic pain; Z87.891 Personal history of nicotine dependence; Z88.5 Allergy status to narcotic agent; Z88.0 Allergy status to penicillin; Z88.2 Allergy status to sulfonamides; Z91.048 Other nonmedicinal substance allergy status
CPT/HCPCS: 99211

== ENCOUNTER → 2023-10-02 | Outpatient (CLI) | payer MEDICARE ==
--- NOTE | 2023-10-02 14:12 | XR ---
EXAMINATION TYPE: XR knee complete bilateral DATE OF EXAM: 10/02/2023 1:29 PM CLINICAL INDICATION:Female, 53 years old with history of M25.561 M25.562 alexandre knee pain; [facility] COMPARISON: None. TECHNIQUE: XR knee complete bilateral; examined in Frontal, lateral and oblique projections. FINDINGS: No evidence of any acute osseous pathology, soft tissue swelling, or joint effusion is no jeffry. Tricompartmental osteophyte formation involving the femoral condyles, tibial plateau and patella . Mild joint space narrowing. A fabella is present on the left. Suspected bone island or other benign process with sclerotic focus proximal left tibia. IMPRESSION: 1. No acute osseous pathology. 2. Mild to moderate bilateral tricompartmental osteoarthritic changes.
== END | disposition home or self-care (01) ==
LOC: RADXRMAIN 13:11
PROVIDERS: ATTEND Orthopaedic Surgery
DX: M17.0 Bilateral primary osteoarthritis of knee (principal)

== ENCOUNTER → 2023-10-17 | Outpatient (CLI) | payer MEDICARE ==
--- NOTE | 2023-11-14 11:58 | MR ---
Patient: Antonio Lester R Ordering Physician: Unknown, Unknown ID: [id number] Phone, Pager: Phone: N/A Pager: N/A : [phone] Age/Gender: 53Y, F Primary Location: N/A Procedure: MR Left knee wo yin abebe Date: 10/17/2023 10:26:17 AM Order #: N/[id number] EXAMINATION TYPE: MR knee LT wo con DATE OF EXAM: 10/30/2023 COMPARISON: Bilateral knee x-rays October 02, 2023 HISTORY: Left knee pain For 2 to 3 months. TECHNIQUE: Multiplanar, multisequence images of the knee is performed without IV contrast. FINDINGS: MEDIAL MENISCUS: Anterior and posterior horns are intact without tear. LATERAL MENISCUS: Anterior and posterior horns are intact without tear. CRUCIATE LIGAMENTS: The anterior and posterior cruciate ligaments are intact and unremarkable. COLLATERAL LIGAMENTS: The medial collateral ligament and lateral collateral ligament complex are inta ct. Some fluid signal surrounds the proximal medial collateral ligament fibers. EXTENSOR MECHANISM: Visualized quadriceps and patellar tendons are intact. EFFUSION: Small size suprapatellar joint effusion. POPLITEAL CYST: Tiny popliteal/sanchez cyst. TRICOMPARTMENT SPACES: Mild to moderate tricompartment joint space loss and mild spurring. CARTILAGE: Some cartilaginous loss medial tibiofemoral compartment. BONE MARROW SIGNAL: A few tiny T2 hyperintense foci posterior aspect of the patella axial image 26. OTHER: No additional significant abnormality is appreciated. IMPRESSION: 1. Mild MCL sprain injury. No meniscal or ligamentous tear otherwise seen. 2. Mild to moderate tricompartment degenerative changes are present as detailed above. 3. Small-sized suprapatellar joint effusion. 4. Tiny popliteal cyst.
== END | disposition home or self-care (01) ==
LOC: RADMRIMAIN 11:14
PROVIDERS: ATTEND Orthopaedic Surgery
DX: S83.412A Sprain of medial collateral ligament of left knee, initial encounter (principal); M17.12 Unilateral primary osteoarthritis, left knee; M25.462 Effusion, left knee; M71.22 Synovial cyst of popliteal space [Baker], left knee

== ENCOUNTER → 2024-01-29 | Outpatient (CLI) | payer MEDICARE ==
[2024-01-29 16:19] LABS: Basophils # (A) 0.05 X 10*3/uL (0.00-0.10); Basophils % (A) 0.7 %; Eosinophils % (A) 2.7 %; HCT 45.6 % (37.2-46.3); HGB 15.6 g/dL (12.0-15.0); Lymphocytes # (A) 1.94 X 10*3/uL (0.90-5.00); Lymphocytes % (A) 26.3 %; MCH 31.6 pg (27.0-32.0); MCHC 34.2 g/dL (32.0-37.0); MCV 92.3 FL (80.0-97.0); Mean Platelet Volume 9.3 FL (9.5-12.2); Monocytes # (A) 0.46 X 10*3/uL (0.20-1.00); Monocytes % (A) 6.2 %; NRBC Per 100 WBC 0 X 10*3/uL (0.00-0.01); Neutrophils % (A) 63.7 %; Platelet Count 347 X 10*3/uL (140-440); RBC 4.94 X 10*6/uL (4.10-5.20); RDW 12.2 % (11.5-14.5); WBC 7.38 X 10*3/uL (4.50-10.00)
[2024-01-29 16:32] LABS: ALT 18 U/L (8-44); AST 17 U/L (13-35); Blood Urea Nitrogen 12.5 mg/dL (9.0-27.0); Ferritin 34.2 ng/mL (10.0-291.0)
[2024-01-29 16:55] LABS: Erythrocyte Sedimentation Rate 2 mm/Hr (0-30)
== END | disposition home or self-care (01) ==
LOC: LABWHC1 08:51
PROVIDERS: ATTEND Internal Medicine Rheumatology
DX: M25.50 Pain in unspecified joint (principal); M06.4 Inflammatory polyarthropathy
CPT/HCPCS: 36415; 82565; 82728; 84450; 84460; 84520; 85025; 85652; 86140